=== PATIENT | male | born 1990 | race Caucasian/White ===

== ENCOUNTER 2019-12-04 09:45 | Emergency (ER) | payer OTHER ==
[~2019-12-04] VITALS: Ht 170.2 cm; Wt 117.9 kg
[2019-12-04 09:52] VITALS: Ht 170.2 cm; Wt 117.9 kg
[2019-12-04 12:28] VITALS: BP 104/77
== END 2019-12-04 12:28 | disposition home or self-care (01) ==
LOC: ED 09:45
DX: T78.3XXA Angioneurotic edema, initial encounter (principal)
CPT/HCPCS: J0171; J1100; J1200